=== PATIENT | male | born 1955 ===

== ENCOUNTER 2021-12-21 05:55 | Day surgery (SDC) | payer OTHER ==
[~2021-12-21] VITALS: Ht 172.7 cm; Wt 67.1 kg
== END 2021-12-21 14:15 | disposition home or self-care (01) ==
LOC: CIR.AMB 05:55
PROVIDERS: ATTEND Specialist
DX: K40.90 Unilateral inguinal hernia, without obstruction or gangrene, not specified as recurrent (principal); Z20.822 Contact with and (suspected) exposure to COVID-19; Z88.0 Allergy status to penicillin; Z92.21 Personal history of antineoplastic chemotherapy; Z85.21 Personal history of malignant neoplasm of larynx; Z87.891 Personal history of nicotine dependence
CPT/HCPCS: 49505; C1781

== ENCOUNTER 2022-02-22 06:05 | Day surgery (SDC) | payer OTHER | END 2022-02-22 15:25 | disposition home or self-care (01) | LOC: CIR.AMB 06:05 | PROVIDERS: ATTEND Specialist | DX: K40.91 Unilateral inguinal hernia, without obstruction or gangrene, recurrent (principal); Z20.822 Contact with and (suspected) exposure to COVID-19; Z88.0 Allergy status to penicillin; Z87.891 Personal history of nicotine dependence; Z85.21 Personal history of malignant neoplasm of larynx; F10.21 Alcohol dependence, in remission | CPT/HCPCS: 49520; C1781 ==